=== PATIENT | male | born 1945 | race Caucasian/White ===

== ENCOUNTER → 2018-05-02 | Outpatient (CLI) | payer MEDICARE, OTHER ==
--- NOTE | 2018-05-02 15:08 | CARD ---
MR#: [id number] Date of Study: 05/02/2018 Ordering Physician: JACKELIN THOMAS, Referring Physician: JACKELIN THOMAS, Tech: Abbey Aaron CS APPROVED REPORT INDICATION Chest Pain Reason : Patient complained of pain PROCEDURE The patient underwent an Exercise Stress Test using the Willian Protocol. Blood pressure, heart rate, a nd EKG were monitored. An Echocardiogram was performed by bench lay out technician in four stages in quad fashion. At peak stress four se lected images were obtained and placed side by side with resting images for comparison. STRESS ECHO FINDINGS The resting Echocardiogram showed normal left ventricular systolic contractility with an estimated Ej ection Fraction of about 60 %. The Resting Echocardiogram showed normal augmentation of myocardial wall segments using a 16 segment model. The Stress Echocardiogram showed normal augmentation of myocardial wall segments using a 16 segment m andrés. The Stress Echocardiogram left ventricular systolic contractility has an estimated Ejection Fraction of about 70%. Test Type: Exercise Stress Nurse/Tech: Simin Mckeon RN Test Indications: Chest pain Cardiac History and Allergies: See [employer] EMR NKDA Medications: See EMR Medical History: See EMR Resting ECG: SR Resting Heart Rate: 63 bpm Resting Blood Pressure: 150/74mmHg Pretest Chest Pain: No chest pain Nurse/Tech Notes S1,S2 and lungs are clear to auscultation. Stress Symptoms Fatigue POST EXERCISE Reason for Termination: Reached target heart rate, Fatigue Target HR: No Max HR: 147 bpm 99% of Maximum Predicted HR: 148 bpm Exercise duration: 10:31 min:sec, 4 Stage Exercise capacity: 12.8METs Max Blood Pressure: 188/54mmHg Blood Pressure response to exercise: Normal blood pressure response during stress. Heart Rate response to exercise: WNL Chest Pain: No. Arrhythmia: No. ST Change: Yes. INTERPRETATION Stress EKG Conclusion: Negative for ischemia. STRESS ECG Stress EKG shows no significant changes. Preliminary Notification Critical Value: No <Conclusion> No evidence of stress induced EKG changes. Normal exercise capacity with 12.8 Mets achieved Normal rest and stress wall motion and EF. Low risk study Signed by : Jackelin Thomas, Electronically Approved : 05/02/2018 15:08:09
== END | disposition home or self-care (01) ==
LOC: ECHO 12:21
PROVIDERS: ATTEND Internal Medicine Cardiovascular Disease
DX: R07.9 Chest pain, unspecified (principal); R53.83 Other fatigue
CPT/HCPCS: 93017; 93350

== ENCOUNTER → 2018-05-30 | Outpatient (CLI) | payer SELFPAY ==
--- NOTE | 2018-05-30 09:34 | KCIC ---
PQRS Compliance Statement: One or more of the following individualized dose reduction techniques were utilized for this examination: 1. Automated exposure control 2. Adjustment of the mA and/or kV according to patient size 3. Use of iterative reconstruction technique Coronary calcium score CT chest without contrast History: 72-year-old male with dyslipidemia for calcium scoring. History of right nephrectomy for malignancy. Technique: With retrospective electrocardiogram gating 2.5 mm thick axial reconstructed noncontrast images of the chest at the level of the coronary arteries was performed. Images were post processed on a [employer] workstation and calcium score calculated using the modified Agatston Janowitz protocol. Findings: Total coronary calcium score is 67.4. This is a mild plaque burden and low cardiovascular disease risk. This is based on the calcium score of 0 of the left main coronary artery, 51.1 of the left anterior descending artery, score of 0.3 of the left circumflex artery and score of 16 of the right coronary artery. Noncoronary findings demonstrate normal cardiac size. No pericardial effusion. Visualized upper abdomen is unremarkable. 4 mm nodule in the right lung is along the minor fissure and may be an intrapulmonary lymph node. There is minimal dependent atelectasis or scarring in the bilateral lower lobes. Visualized lungs otherwise clear. IMPRESSION: 1. Patient's total calcium score is 67.4. 2. There is a 4 mm noncalcified nodule in the right middle lobe. Given history of malignancy, recommend comparison to prior imaging. If not available recommend noncontrast CT chest follow-up in 6-12 months. Electronically signed by: Abdias Combs MD (05/30/2018 9:30 AM) [id number]
== END | disposition home or self-care (01) ==
LOC: KCIC CT 08:37
PROVIDERS: ATTEND Internal Medicine Cardiovascular Disease
DX: E78.5 Hyperlipidemia, unspecified (principal); R91.1 Solitary pulmonary nodule
CPT/HCPCS: 75571